=== PATIENT | female | born 1945 | race Caucasian/White ===

== ENCOUNTER 2020-04-18 20:57 | Emergency (ER) | payer SELFPAY ==
--- NOTE | 2020-04-18 21:21 | NUR ---
PER REGISTRATION PT STATES SHE WILL RETURN TOMORROW TO HAVE HER STITCHES REMOVED AND LEFT ER
== END 2020-04-18 21:23 | disposition short-term general hospital (02) ==
LOC: FSED 20:57
DX: R69 Illness, unspecified (principal)